=== PATIENT | female | born 1985 | race African-American/Black ===

== ENCOUNTER 2016-12-19 01:25 | Emergency (ER) | payer MEDICAID ==
[~2016-12-19] VITALS: Ht 167.6 cm; Wt 56.7 kg
[2016-12-19 01:35] VITALS: BP 101/68
--- NOTE | 2016-12-19 01:35 | NUR ---
31Y F BIBA C/O SEIZURE X 2 MIN TONIC-CLONIC WHILE AT HOME WITH FAMILY. SISTER WAS THERE TO WITNESS. NO ORAL OR HEAD TRAUMA NOTED. PT AAO X 4. 18G TO THE L WRIST ESTABLISHED BY EMS. SEIZURE PRECAUTIONS ARE IN PLACE. PT POSITIONED TO COMFORT.
--- NOTE | 2016-12-19 01:35 | NUR ---
Patient being evaluated by physician at [facility].
--- NOTE | 2016-12-19 01:38 | NUR ---
[facility] ALS TO ER BED 7
[2016-12-19] MEDS ORDERED: levETIRAcetam 1,000 MG in NACL 0.9% 100 ML IV ONE (02:00)
[2016-12-19] MEDS ORDERED: levETIRAcetam 100 MG/ML VIAL IV ONE (02:09)
--- NOTE | 2016-12-19 04:10 | NUR ---
IV removed, catheter intact and site benign. Applied folded 4x4 gauze and tape to stop bleeding.
[2016-12-19 04:13] VITALS: BP 110/76
--- NOTE | 2016-12-19 04:13 | NUR ---
Patient discharged with v/s stable. Written and verbal after care instructions given and explained. Patient alert, oriented and verbalized understanding of instructions. Ambulatory with steady gait. All questions addressed prior to discharge. ID band removed. Patient advised to follow up with PMD. Rx of KEPPRA 500MG given. Patient educated on indication of medication including possible reaction and side effects. Opportunity to ask questions provided and answered.
[2016-12-19] MEDS ORDERED: levETIRAcetam 1,000 MG in NACL 0.9% 100 ML IV SCH (09:00)
== END 2016-12-19 04:13 | disposition home or self-care (01) ==
LOC: MED 01:25
DX: R56.9 Unspecified convulsions (principal)
CPT/HCPCS: 36415; 80053; 81002; 81025; 85025; 96365; 99284; J1953